=== PATIENT | female | born 2000 | race Caucasian/White ===

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

== ENCOUNTER 2018-01-05 14:38 | Emergency (ER) | payer BC ==
[2018-01-05] MEDS ORDERED: ONDANSETRON 4 MG ODT TABLET SL ONE (14:52)
--- NOTE | 2018-01-05 14:58 | Emergency Department Record ---
History of Present Illness - General Chief complaint: Vomiting Stated complaint: VOMITING WITH A KIDNEY INFECTION Time Seen by Provider: 01/05/18 14:52 Source: Patient Mode of Arrival: Ambulatory Limitations: No limitations - History of Present Illness Initial comments: Pt on Cipro and Tramdol by FP doc for "kidney infection". Today vomit x 2 in last 90 minutes. Vomit is food. No blood. No chills or documented fever to day. Feeling better with decreased back pains and urinary symtoms since starting AB. No other issues. MD complaint: Vomiting Onset/Timin -: Days(s) Description of Vomiting: Watery Associated Abdominal Pain: Yes Location: RLQ Radiation: None Severity: Moderate Severity scale (1-10): 4 Quality: Aching, Dull Consistency: Constant Improves with: None Worsens with: None Context: Other Associated Symptoms: Nausea/vomiting - Related Data Previous Rx's Medication Instructions Recorded Ondansetron [Zofran Odt] 4 mg PO Q8H #8 tab.rapdis 01/05/18 Allergies Allergy/AdvReac Type Severity Reaction Status Date / Time No Known Drug Allergies Allergy Verified 01/05/18 14:44 Travel Screening - Travel/Exposure Within Last 30 Days Have you traveled within the last 30 days?: No - Travel/Exposure Within Last Year Have you traveled outside the [place] in the last year?: No - Additonal Travel Details Have you been exposed to anyone with a communicable illness?: No - Travel Symptoms Symptom Screening: None Review of Systems Constitutional: Denies: Chills, Fever, Malaise Eyes: Denies: Vision change ENT: Denies: Congestion Respiratory: Denies: Cough, Dyspnea Cardiovascular: Denies: Arrhythmia, Chest pain Endocrine: Denies: Fatigue Gastrointestinal: Reports: Vomiting. Denies: Abdominal pain Genitourinary: Denies: Abnormal menses Musculoskeletal: Denies: Back pain Skin: Denies: Bruising Neurological: Denies: Abnormal gait, Tremors Psychiatric: Denies: Anxiety Hematological/Lymphatic: Denies: Anemia Past Medical History - SOCIAL HISTORY Smoking Status: Never smoker Alcohol Use: Occasional Drug Use Detail:: Marijuana - RESPIRATORY Hx Respiratory Disorders: No - CARDIOVASCULAR Hx Cardio Disorders: No - NEURO Hx Neuro Disorders: No - GI Hx GI Disorders: Yes Hx Abdominal Pain: Yes Hx Nausea/Vomiting: Yes Hx Wt Loss/Wt Gain: Yes (loss of 15 lbs in 8 mos) - Hx Genitourinary Disorders: No Comment:: Minor child-no longer living at home - ENDOCRINE Hx Endocrine Disorders: No - MUSCULOSKELETAL Hx Musculoskeletal Disorders: No - PSYCH Hx Psych Problems: Yes Hx Anxiety: Yes Hx Depression: Yes - HEMATOLOGY/ONCOLOGY Hx Hematology/Oncology Disorders: No Family Medical History Any Significant Family History?: Yes Hx Cancer: Grandparents *Cancer Comment: Paternal Grandfather-stomach cancer Physical Exam - General General Appearance: Alert, Oriented x3, Cooperative, No acute distress - Head Head exam: Atraumatic - Eye Eye exam: Normal appearance, PERRL, EOMI - ENT ENT exam: Normal exam, Mucous membranes moist, Normal external ear exam, Normal orophraynx, TM's normal bilaterally - Neck Neck exam: Normal inspection - Respiratory Respiratory exam: Normal lung sounds bilaterally. negative: Wheezes - Cardiovascular Cardiovascular Exam: Regular rate, Normal rhythm - GI/Abdominal GI/Abdominal exam: Soft, Normal bowel sounds. negative: Guarding, Rebound, Tenderness - Rectal Rectal exam: Deferred - exam: Deferred - Extremities Extremities exam: Normal inspection - Back Back exam: Reports: Normal inspection. Denies: CVA tenderness (R), CVA tenderness (L) - Neurological Neurological exam: Alert, Normal gait, Oriented X3 - Psychiatric Psychiatric exam: Normal affect, Normal mood - Skin Skin exam: Normal color. negative: Rash Course Vital Signs 01/05/18 14:52 Temperature 98.4 F Pulse Rate [ 104 H Pulse Ox Probe] Respiratory 18 Rate Blood Pressure 99/77 [Left Arm] Pulse Ox 100 - Reevaluation(s) Reevaluation #1: 01/05/18 15:42 Much better. Nausea resolved. Disha po fluids. Home with instructions. Stop Pain meds. Continue AB til gone Disposition Disposition: Discharge Clinical Impression: Medication intolerance, UTI (urinary tract infection) Vomiting Qualifiers: Vomiting Intractability: non-intractable Nausea presence: with nausea Condition: (1) Good Additional Instructions: Stop the Tramadol. Continue the Cipro until gone. Prescriptions: Ondansetron [Zofran Odt] 4 mg PO Q8H #8 tab.rapdis Forms: Patient Portal Access Quality - Quality Measures Quality Measures: N/A - Blood Pressure Screening Does Patient Have Any of the Following: No Blood Pressure Classification: Normal BP Reading Systolic Measurement: 99 Diastolic Measurement: 77 Screening for High Blood Pressure: < Normal BP, F/U Not Required > [[id number]]
[2018-01-05 15:05] LABS: URINE APPEARANCE CLEAR; URINE BILIRUBIN NEGATIVE (NEGATIVE); URINE BLOOD MODERATE (NEGATIVE); URINE COLOR YELLOW; URINE GLUCOSE (UA) NEGATIVE (NEGATIVE); URINE KETONE NEGATIVE (NEGATIVE); URINE LEUKOCYTE ESTERASE TRACE (NEGATIVE); URINE NITRITE NEGATIVE (NEGATIVE); URINE PROTEIN TRACE (NEGATIVE); URINE UROBILINOGEN 0.2 E.U./dL (0.20 - 1.00)
[2018-01-05 15:28] LABS: URINE BACTERIA 1+; URINE HYALINE CAST FEW /lpf
== END 2018-01-05 16:22 | disposition home or self-care (01) ==
LOC: ER 14:38
DX: R11.2 Nausea with vomiting, unspecified (principal); T40.4X5A Adverse effect of other synthetic narcotics, initial encounter; N39.0 Urinary tract infection, site not specified; R10.31 Right lower quadrant pain
CPT/HCPCS: 81001; 99283